=== PATIENT | male | born 1950 | race Caucasian/White ===

== ENCOUNTER 2020-05-11 18:26 | Inpatient (IN) ==
[2020-05-11] MEDS ORDERED: Isovue-370 500 ML BOTTLE IVP ONE (18:46)
[2020-05-11 18:59] LABS: Basophils % 0.4 %; Eosinophils # 0.1 K/mcL (0.0-0.6); Eosinophils % 0.7 %; Hematocrit 45.7 % (37.5-50.1); Hemoglobin 15.6 g/dL (12.9-16.9); Immature Granulocytes % 0.3 % (0-4); Lymphocytes % 18.3 %; Mean Corpuscular HGB Conc 34.1 g/dL (31.6-35.5); Mean Corpuscular Hemoglobin 30.9 pg (28.0-33.3); Mean Corpuscular Volume 90.5 fL (83.0-100.0); Mean Platelet Volume 10.8 fL (9.4-12.4); Monocytes # 1.1 K/mcL (0.0-1.3); Monocytes % 9.6 %; Neutrophils # 7.7 K/mcL (1.6-8.9); Platelet Count 202 K/mcL (140-400); Red Blood Count 5.05 M/mcL (4.19-5.50); Red Cell Distribution Width 13.4 % (11.5-14.5); Segmented Neutrophils % 70.7 %; White Blood Count 10.9 K/mcL (4.3-11.1)
[2020-05-11 19:10] LABS: INR 1.1; Prothrombin Time 12.2 Seconds (9.4-12.1)
[2020-05-11 19:12] LABS: Activated Partial Thrombo Time 30.4 Seconds (26.0-36.0)
[2020-05-11 19:23] LABS: Alanine Aminotransferase 108 Units/L (7-52); Albumin 3.7 g/dL (3.5-5.7); Albumin/Globulin Ratio 1.3 (1.1-2.2); Alkaline Phosphatase 61 Units/L (34-104); Aspartate Amino Transferase 271 Units/L (13-39); BUN/Creatinine Ratio 29 (6-26); Bilirubin,Direct 0.2 mg/dL (0.0-0.2); Bilirubin,Indirect 0.7 mg/dL (0.0-1.0); Bilirubin,Total 0.9 mg/dL (0.3-1.0); Blood Urea Nitrogen 24 mg/dL (8-23); C-Reactive Protein 127 mg/L (Less than 10); Calcium 8.6 mg/dL (8.6-10.3); Carbon Dioxide 22 mEq/L (23-29); Chloride 107 mEq/L (98-107); Globulin 2.9 g/dL (2.4-3.5); Glucose 183 mg/dL (70-105); Lactate Dehydrogenase 430 Units/L (140-271); Magnesium 1.9 mg/dL (1.6-2.6); Osmolality,Calculated 291 (280-300); Phosphorous 1.9 mg/dL (2.7-4.5); Sodium 136 mEq/L (136-145); Total Protein 6.6 g/dL (6.4-8.9); Troponin I < 0.03 ng/mL (< 0.04); eGFR For African Americans > 60 (> 60); eGFR For Non-African Americans > 60 (> 60)
[2020-05-11 19:35] LABS: VBG HCO3 26 mEq/L (21-27); VBG PCO2 51 mmHg (41-51); VBG PH 7.32 pH Units (7.32-7.42); VBG PO2 39 mmHg (25-50)
[2020-05-11 19:42] LABS: Ferritin 191 ng/mL (20-250)
[2020-05-11] MEDS ORDERED: Azithromycin 500 MG in 0.9 % Sodium Chloride 250 ML IVPB ONE (20:26)
[2020-05-11] MEDS ORDERED: cefTRIAXone 1,000 MG in Water for inj. (sterile) 10 ML IVP ONE (20:26)
[2020-05-11] MEDS ORDERED: 0.9 % Sodium Chloride 1,000 ML IVC ONE (20:35)
[2020-05-11] MEDS ORDERED: *HR* LORazepam 2 MG/ML VIAL IVP ONE (20:43)
[2020-05-11 22:42] LABS: Adenovirus Not Detected (Not Detect); Bordetella Pertussis Not Detected (Not Detect); Chlamydophila pneumoniae Not Detected (Not Detect); Coronavirus 229E Not Detected (Not Detect); Coronavirus HKU1 Not Detected (Not Detect); Coronavirus NL63 Not Detected (Not Detect); Coronavirus OC43 Not Detected (Not Detect); Human Metapneumovirus Not Detected (Not Detect); Human Rhinovirus/Enterovirus Not Detected (Not Detect); Influenza A Subtype 2009 H1 Not Detected (Not Detect); Influenza B Not Detected (Not Detect); Mycoplasma pneumoniae Not Detected (Not Detect); Parainfluenza Virus 1 Not Detected (Not Detect); Parainfluenza Virus 2 Not Detected (Not Detect); Parainfluenza Virus 3 Not Detected (Not Detect); Parainfluenza Virus 4 Not Detected (Not Detect); Respiratory Syncytial Virus Not Detected (Not Detect); SARS-CoV-2 Not Detected (Not Detect)
[2020-05-11] MEDS ORDERED: Ibuprofen 400 MG TABLET PO PRN (23:24)
[2020-05-11] MEDS: GuaiFENesin Liq 200 MG/10 ML UDC PO SCH (23:58)
[2020-05-11] MEDS: Metoprolol 100 MG TABLET PO SCH (23:58)
[2020-05-11] MEDS: predniSONE 10 MG TABLET PO SCH (23:58)
[2020-05-11] MEDS: Acetaminophen 325 MG TABLET PO SCH (23:58)
[2020-05-11] MEDS: Loratadine 10 MG TABLET PO SCH (23:58)
[2020-05-12] MEDS ORDERED: Ondansetron 4 MG/2 ML VIAL IVP PRN
[2020-05-12] MEDS ORDERED: Naloxone 0.4 MG/ML INJ IVP PRN
[2020-05-12] MEDS ORDERED: hydrOXYzine pamoate 25 MG CAPSULE PO ONE ×2 (00:25→06:55)
[2020-05-12 01:26] LABS: Basophils % 0.3 %; Eosinophils # 0.1 K/mcL (0.0-0.6); Eosinophils % 1.4 %; Hematocrit 44.2 % (37.5-50.1); Hemoglobin 14.8 g/dL (12.9-16.9); Immature Granulocytes % 0.4 % (0-4); Lymphocytes % 19.8 %; Mean Corpuscular HGB Conc 33.5 g/dL (31.6-35.5); Mean Corpuscular Hemoglobin 30.6 pg (28.0-33.3); Mean Corpuscular Volume 91.5 fL (83.0-100.0); Mean Platelet Volume 10.2 fL (9.4-12.4); Monocytes # 1.3 K/mcL (0.0-1.3); Monocytes % 12.9 %; Neutrophils # 6.5 K/mcL (1.6-8.9); Platelet Count 183 K/mcL (140-400); Red Blood Count 4.83 M/mcL (4.19-5.50); Red Cell Distribution Width 13.5 % (11.5-14.5); Segmented Neutrophils % 65.2 %
[2020-05-12 01:46] LABS: BUN/Creatinine Ratio 26 (6-26); Blood Urea Nitrogen 21 mg/dL (8-23); Calcium 8.5 mg/dL (8.6-10.3); Carbon Dioxide 24 mEq/L (23-29); Chloride 108 mEq/L (98-107); Glucose 96 mg/dL (70-105); Osmolality,Calculated 287 (280-300); Sodium 137 mEq/L (136-145); eGFR For African Americans > 60 (> 60); eGFR For Non-African Americans > 60 (> 60)
[2020-05-12] MEDS: Ipratropium/Albuterol Neb 3 ML IH SCH ×6 (01:52→19:43)
[2020-05-12] MEDS: Ipratropium/Albuterol Neb 3 ML IH PRN ×2 (01:53→05:14)
[2020-05-12] MEDS: *HR* Labetalol 20 MG/4 ML SYRINGE IVP PRN ×2 (05:44→18:57)
[2020-05-12] MEDS ORDERED: cloNIDine HCL 0.1 MG TABLET PO ONE ×2 (06:59→19:55)
[2020-05-12] MEDS: Acetaminophen 325 MG TABLET PO SCH (07:35)
[2020-05-12] MEDS: Metoprolol 100 MG TABLET PO SCH (07:35)
[2020-05-12] MEDS: Loratadine 10 MG TABLET PO SCH (07:35)
[2020-05-12] MEDS: GuaiFENesin Liq 200 MG/10 ML UDC PO SCH (07:36)
[2020-05-12] MEDS: predniSONE 10 MG TABLET PO SCH (07:36)
[2020-05-12] MEDS: Gabapentin 300 MG CAPSULE PO PRN ×3 (07:42→20:05)
[2020-05-12] MEDS ORDERED: MethylPREDNISolone 40 MG/ML VIAL IVP SCH (09:00)
[2020-05-12] MEDS: levoFLOXacin 750 MG/150 ML 750 MG/150 ML BAG IVPB SCH (09:18)
[2020-05-12] MEDS: Fluticasone Propionate Nasal 50 MCG/SPRAY BOTTLE NS SCH (09:19)
[2020-05-12] MEDS ORDERED: Perflutren Lipid Microsphere 1.3 ML in 0.9 % Sodium Chloride 8.7 ML IVP PRN (13:54)
[2020-05-12] MEDS ORDERED: Haloperidol Lactate 5 MG/ML VIAL IVP ONE (16:17)
[2020-05-12] MEDS: Budesonide/Formoterol 160/4.5 1 PUFF INH IH SCH (19:45)
[2020-05-12] MEDS ORDERED: hydrOXYzine pamoate 25 MG CAPSULE PO PRN (19:55)
[2020-05-12] MEDS ORDERED: Acetaminophen 325 MG TABLET PO PRN (19:56)
[2020-05-12] MEDS: Furosemide 20 MG/2 ML VIAL IVP SCH (20:05)
[2020-05-12] MEDS: *HR* Heparin 5,000 UNIT/ML VIAL SQ SCH (23:17)
[2020-05-13] MEDS: Ipratropium/Albuterol Neb 3 ML IH SCH ×7 (00:03→23:54)
[2020-05-13] MEDS: *HR* Heparin 5,000 UNIT/ML VIAL SQ SCH ×3 (06:38→19:47)
[2020-05-13] MEDS: GuaiFENesin Liq 200 MG/10 ML UDC PO SCH (09:27)
[2020-05-13] MEDS: Metoprolol 100 MG TABLET PO SCH (09:28)
[2020-05-13] MEDS: Furosemide 20 MG/2 ML VIAL IVP SCH ×2 (09:29→19:48)
[2020-05-13] MEDS: Loratadine 10 MG TABLET PO SCH (09:29)
[2020-05-13] MEDS: levoFLOXacin 750 MG/150 ML 750 MG/150 ML BAG IVPB SCH (09:30)
[2020-05-13] MEDS: Fluticasone Propionate Nasal 50 MCG/SPRAY BOTTLE NS SCH (09:31)
[2020-05-13] MEDS ORDERED: amLODIPine 5 MG TABLET PO ONE (11:15)
[2020-05-13] MEDS: Budesonide/Formoterol 160/4.5 1 PUFF INH IH SCH ×2 (11:21→20:45)
[2020-05-13] MEDS ORDERED: Haloperidol Lactate 5 MG/ML VIAL IVP ONE ×2 (13:38→16:46)
[2020-05-13] MEDS: hydrALAZINE 25 MG TABLET PO SCH ×2 (17:21→18:04)
[2020-05-13] MEDS: Gabapentin 300 MG CAPSULE PO PRN (17:24)
[2020-05-13 18:17] LABS: Amphetamine Screen,Urine Negative ng/mL (Cutoff=1000); Barbiturate Screen,Urine Negative ng/mL (Cutoff=200); Benzodiazepines Screen,Urine Negative ng/mL (Cutoff=200); Cannabinoid Screen,Urine Negative ng/mL (Cutoff = 50); Cocaine Screen,Urine Negative ng/mL (Cutoff= 300); Opiate Screen,Urine Negative ng/mL (Cutoff=300); Phencyclidine Screen,Urine Negative ng/mL (Cutoff=25)
[2020-05-14] MEDS: hydrALAZINE 25 MG TABLET PO SCH ×2 (00:10→08:04)
[2020-05-14] MEDS: Ipratropium/Albuterol Neb 3 ML IH SCH ×2 (04:09→07:35)
[2020-05-14] MEDS: *HR* Heparin 5,000 UNIT/ML VIAL SQ SCH (05:12)
[2020-05-14 07:04] VITALS: BP 158/96
[2020-05-14] MEDS: Budesonide/Formoterol 160/4.5 1 PUFF INH IH SCH (07:35)
[2020-05-14] MEDS: Loratadine 10 MG TABLET PO SCH (08:04)
[2020-05-14] MEDS: Furosemide 20 MG/2 ML VIAL IVP SCH (08:05)
[2020-05-14] MEDS: Fluticasone Propionate Nasal 50 MCG/SPRAY BOTTLE NS SCH (08:05)
[2020-05-14] MEDS: levoFLOXacin 750 MG/150 ML 750 MG/150 ML BAG IVPB SCH (08:05)
[2020-05-14] MEDS: Metoprolol 100 MG TABLET PO SCH (08:05)
[2020-05-14] MEDS: GuaiFENesin Liq 200 MG/10 ML UDC PO SCH (08:05)
[2020-05-14] MEDS ORDERED: Azithromycin 250 MG TABLET PO SCH (09:00)
[2020-05-14] MEDS ORDERED: amLODIPine 5 MG TABLET PO SCH (09:00)
[2020-05-14] MEDS ORDERED: hydrALAZINE 25 MG TABLET PO SCH (16:40)
== END 2020-05-14 10:06 | disposition home or self-care (01) | DRG 194 ==
LOC: 3ANU 18:26 → EMEROOARM 18:26 → SUATTDRO 21:18 → 3ANU 23:22
PROVIDERS: ADMIT Family Medicine; ATTEND Internal Medicine